=== PATIENT | female | born 1950 | race Caucasian/White ===

== ENCOUNTER → 2024-12-29 | Outpatient (CLI) | payer MEDICARE, OTHER, SELFPAY ==
--- OUTSIDE RECORDS SUMMARY | 2024-12-29 07:43 | XMS RPT_ITS | CCD ---
Author Organization [facility] Inform ion Partnership [facility] Care Team Providers Care Tire Fixer Name Role Phone Unavailable Unavailable Unavailable SCOTT CRAWFORD ALAN Unavailable Unavailable JOSEPHBALDEVE Unavailable Unavaila ble FADA SCOTT KATELYNN Unavailable Unavailable FADA SCOTT KATELYNN Unavailable Unavailable JOSEPHBALDEV VENKATA Unavailable Unavaila ble Unavailable Primary Care Provider Unavaillinda RAMIREZ, DR CHRISTIANO Emery Attending Unavaila ble ASHLEY, DR CHRISTIANO Emery Primary Care Unavaila ble ASHLEY, DR CHRISTIANO Emery Admitting Unavaila ble Pablo Gagnon Attending Unavailable Samson MCKEON, Pablo Attending Unavailable Inder Sosa MD Unavailable Unavailable PERRY LOPEZ Attending Unavailable KEYLA YOEL Bina Consulting Unavailable PALOMO RAMIREZ Admitting Unavailable PALOMO RAMIREZ Primary Care Unavailable PALOMO RAMIREZ Attending Unavailable PROVIDER, UNKNOWN Consulting Unavailable NORCH, YOEL K Primary Care Unavailable NORCH, YOEL K Attending Unavailable NORCH, YOEL K Admitting Unavailable NORCH, YOEL K Primary Care Unavailable NORCH, YOEL K Attending Unavailable NORCH, YOEL K Admitting Unavailable RENAY WAN MD Admitting Unavailable RENAY WAN MD Primary Care Unavailable RENAY WAN MD Attending Unavailable DR PALOMO RAMIREZ MD Attending Unavailable DR PALOMO RAMIREZ MD Primary Care Unavailable Allergies Allergy Classification Reported Allergen(s) Allergy Type Date of Onset Reaction(s) Facility (1 source) ALLERGIES NOT ON FILE; Translations: [ALLERGIES NOT ON FILE] Propensity to adverse reactions (disorder) [facility] Repository Medications Current Medications Medication Drug Class(es) Dates Sig (Normalized) Sig (Original) atorvastatin 20 mg oral tablet (1 source) HMG-CoA Reductase Inhibitor Start: 7 take 1 tablet by mouth once daily atorvastatin (LIPITOR) 20 MG tablet Take 20 mg by mouth daily. 09/27/2016 Active celecoxib 200 mg oral capsule (1 source) Nonsteroidal Anti-inflammatory Drug Start: 7 take 1 capsule by mouth twice daily celecoxib (CELEBREX) 200 MG capsule Take 200 mg by mouth 2 (two) times a day. 11/29/2016 Active clobetasol propionate 0.5 mg/ml topical cream (1 source) Corticosteroid Start: 7 clobetasol (TEMOVATE) 0.05 % cream Apply 0.05 application topically 2 (two) times a day as needed. 1 09/30/2016 Active cloNIDine hydrochloride 0.1 mg oral tablet (1 source) Central alpha-2 Adrenergic Agonist Start: 7 take 1 tablet by mouth once daily cloNIDine HCl (CATAPRES) 0.1 MG tablet Take 0.1 mg by mouth daily. 12/05/2016 Active dapagliflozin 10 mg oral tablet (1 source) Sodium-Glucose Cotransporter 2 Inhibitor Start: 7 take 1 tablet by mouth once daily FARXIGA 10 mg Tab Take 10 mg by mouth daily. 12/05/2016 Active dextroamphetamine sulfate 10 mg oral tablet (1 source) Central Nervous System Stimulant Start: 7 take 1 tablet by mouth three times daily dextroamphetamine (DEXTROSTAT) 10 MG tablet Take 10 mg by mouth 3 (three) times a day. 0 12/03/2016 Active FLUoxetine 10 mg oral capsule (1 source) Serotonin Reuptake Inhibitor Start: 7 take 1 capsule by mouth three times daily FLUoxetine (PROZAC) 10 MG capsule Take 10 mg by mouth 3 (three) times a day. 12/05/2016 Active gabapentin 300 mg oral capsule (1 source) Anti-epileptic Agent Start: 7 take 1 capsule by mouth three times daily gabapentin (NEURONTIN) 300 MG capsule Take 300 mg by mouth 3 (three) times a day. 10/20/2016 Active lisdexamfetamine dimesylate 70 mg oral capsule (1 source) Central Nervous System Stimulant Start: 7 take 1 capsule by mouth once daily VYVANSE 70 mg capsule Take 70 mg by mouth daily. 0 12/03/2016 Active metroNIDAZOLE 7.5 mg/ml topical cream (1 source) Nitroimidazole Antimicrobial Start: 7 metroNIDAZOLE (METROCREAM) 0.75 % cream Apply 0.75 application topically 2 (two) times a day as needed. 12 10/09/2016 Active montelukast 10 mg oral tablet (1 source) Leukotriene Receptor Antagonist Start: 7 take 1 tablet by mouth once daily montelukast (SINGULAIR) 10 mg tablet Take 10 mg by mouth daily. 11/01/2016 Active multivitamin (multivitamin) per tablet (1 source) take 1 tablet by mouth once daily multivitamin (multivitamin) per tablet Take 1 tablet by mouth daily. Active omeprazole 40 mg delayed release oral capsule (1 source) Proton Pump Inhibitor Start: 7 take 1 capsule by mouth once daily omeprazole (PRILOSEC) 40 MG capsule Take 40 mg by mouth daily. 10/20/2016 Active topiramate 100 mg oral tablet (1 source) Anti-epileptic Agent Start: 7 take 1 tablet by mouth once daily topiramate (TOPAMAX) 100 MG tablet Take 100 mg by mouth daily. 12/05/2016 Active traZODone hydrochloride 100 mg oral tablet (1 source) Serotonin Reuptake Inhibitor Start: 7 take 1 tablet by mouth twice daily as needed traZODone (DESYREL) 100 MG tablet Take 100 mg by mouth 2 (two) times a day as needed. 12/05/2016 Active VITAMIN D2 50,000 unit capsule (1 source) Start: 7 take 1 capsule by mouth once daily, then take 1 capsule by mouth VITAMIN D2 50,000 unit capsule Take 50,000 Units by mouth daily. 10/20/2016 Active Problems Active Problems Problem Classification Problem Date Documented Da te Episodic/Chronic Complication of device; implant or graft (12 sources) Other mechanical complication of other internal joint prosthesis, subsequent encounter; Translations: [Other mechanical complication of other internal orthopedic devices, implants and grafts, subsequent encounter] Episodic Diabetes mellitus with complications (2 sources) Type 2 diabetes mellitus with unspecified complications; Translations: [Type 2 diabetes mellitus with unspecified complications] Onset: 11-21-2024 Chronic Disorders of lipid metabolism (2 sources) Mixed hyperlipidemia; Translations: [Mixed hyperlipidemia] Onset: 11-21-2024 Chronic Essential hypertension (2 sources) Essential (primary) hypertension; Translations: [Essential (primary) hypertension] Onset: 11-21-2024 Chronic Osteoarthritis (9 sources) Primary osteoarthritis, right ankle and foot; Translations: [Primary osteoarthritis, unspecified shoulder] Onset: 01-11-2024 Chronic Other bone disease and musculoskeletal deformities (1 source) Other specified disorders of bone density and structure, other site; Translations: [Other specified disorders of bone density and structure, other site] Onset: 11-07-2024 Episodic Other connective tissue disease (2 sources) Presence of left artificial knee joint; Translations: [Presence of left artificial knee joint] Onset: 12-09-2016 Chronic Other connective tissue disease (6 sources) Presence of right artificial ankle joint Chronic Other injuries and conditions due to external causes (1 source) Unspecified injury of right foot, initial encounter; Translations: [Unspecified injury of right foot, initial encounter] Onset: 10-12-2022 Episodic Other screening for suspected conditions (not mental disorders or infectious disease) (2 sources) Encounter for screening for osteoporosis; Translations: [Encounter for screening for osteoporosis] Onset: 11-07-2024 Episodic Unclassified (1 source) Unknown / UNK(Unknown) Onset: 12-09-2016 Past or Other Problems Problem Classification Problem Date Documented Da te Episodic/Chronic Other connective tissue disease (1 source) Unspecified disorder of synovium and tendon, unspecified shoulder; Translations: [Unspecified disorder of synovium and tendon, unspecified shoulder] Onset: 01-11-2024 Episodic Unclassified (1 source) Follow-up Onset: 12-09-2016 Unclassified (1 source) YEARLY CHECK (chief complaint) right ankle pain (chief complaint) Onset: 02-09-2023 Results Test Name Value Interpretation Reference Range Facility .GFRon 11-22-2024 Estimated Glomerular Filtration Rate 86 ml/min/1.73sqm [facility] Comment on above: Result Comment: Stages of Chronic Kidney Disease (CKD) Stage Description eGFR(ml/min/1.73 sq.m.) CKD 1 Normal kidney function or >=90 normal kindney function with possible kidney damage (ex. Proteinuria) CKD 2 Kidney damage with mild loss 60-89 of kidney function CKD 3a Mild to moderate loss of kidney 45-59 function CKD 3b Moderate to severe loss of 30-44 of kindey function CKD 4 Severe loss of kidney function 15-29 CKD 5 Kidney failure <15 Note: (go live 2024) the eGFR calculation was updated to the 2020 CKD-EPI creatinine equation without a race factor to calculate the eGFR results. Performed By: #### A 1C, GFR, TSH, B12, HFP, VIDH, FERR, LIPID, HGMP, FE, IBC, BMP #### [place] [id number] A1Con 11-22-2024 Glucose [Mass/Vol] 108 mg/dL Normal [facility] Comment on above: Result Comment: Estimated Average Glucos e calculated by equation ((28.7xA1C)-46.7) Estimated average glucose (eAG) is a calculated value from Hemoglobin A1C and is outside sales representative insurance of the average blood glucose level in the last 2-3 month period. Normal range: less than 114 mg/dL Performed By: #### A 1C, GFR, TSH, B12, HFP, VIDH, FERR, LIPID, HGMP, FE, IBC, BMP #### [place] [address] HbA1c (Bld) [Mass fraction] 5.4 % Normal 4.0-6.0 [facility] Comment on above: Performed By: #### A1C, GFR, TSH, B12, H FP, VIDH, FERR, LIPID, HGMP, FE, IBC, BMP #### [place] [id number] B12on 11-22-2024 Vitamin B12 Lvl >2000 High 211-911 [facility] Comment on above: Performed By: #### A1C, GFR, TSH, B12, H FP, VIDH, FERR, LIPID, HGMP, FE, IBC, BMP #### [place] [id number] BMPon 11-22-2024 BUN/Creatinine Ratio 21.6 ratio Normal 10.0-22.0 [facility] Comment on above: Performed By: #### A1C, GFR, TSH, B12, H FP, VIDH, FERR, LIPID, HGMP, FE, IBC, BMP #### [address] [address] Calcium [Mass/Vol] 9.8 mg/dL Normal 8.7-10.4 [facility] Comment on above: Performed By: #### A1C, GFR, TSH, B12, H FP, VIDH, FERR, LIPID, HGMP, FE, IBC, BMP #### [address] [address] Chloride [Moles/Vol] 109 mmol/L Normal 98-110 [facility] Comment on above: Performed By: #### A1C, GFR, TSH, B12, H FP, VIDH, FERR, LIPID, HGMP, FE, IBC, BMP #### [address] [address] CO2 [Moles/Vol] 26 mmol/L Normal 22-32 [facility] Comment on above: Performed By: #### A1C, GFR, TSH, B12, H FP, VIDH, FERR, LIPID, HGMP, FE, IBC, BMP #### [place] [id number] Creatinine [Mass/Vol] 0.74 mg/dL Normal 0.50-1.20 [facility] Comment on above: Result Comment: Testing performed on [employer] analyzer using enzymatic creatinine methodology. Performed By: #### A 1C, GFR, TSH, B12, HFP, VIDH, FERR, LIPID, HGMP, FE, IBC, BMP #### [place] [id number] Electrolyte Balance 8.0 mEq/L Normal 4.0-15.0 [facility] Comment on above: Performed By: #### A1C, GFR, TSH, B12, H FP, VIDH, FERR, LIPID, HGMP, FE, IBC, BMP #### [place] [id number] Glucose [Mass/Vol] 67 mg/dL Low 82-115 [facility] Comment on above: Performed By: #### A1C, GFR, TSH, B12, H FP, VIDH, FERR, LIPID, HGMP, FE, IBC, BMP #### [address] [address] Potassium [Moles/Vol] 4.0 mmol/L Normal 3.5-5.0 [facility] Comment on above: Performed By: #### A1C, GFR, TSH, B12, H FP, VIDH, FERR, LIPID, HGMP, FE, IBC, BMP #### [address] [address] Sodium [Moles/Vol] 143 mmol/L Normal 136-145 [facility] Comment on above: Performed By: #### A1C, GFR, TSH, B12, H FP, VIDH, FERR, LIPID, HGMP, FE, IBC, BMP #### [address] [address] Urea nitrogen [Mass/Vol] 16.0 mg/dL Normal 8.0-22.0 [facility] Comment on above: Performed By: #### A1C, GFR, TSH, B12, H FP, VIDH, FERR, LIPID, HGMP, FE, IBC, BMP #### [place] [id number] FEon 11-22-2024 Iron [Mass/Vol] 65 ug/dL Normal 50-170 [facility] Comment on above: Performed By: #### A1C, GFR, TSH, B12, H FP, VIDH, FERR, LIPID, HGMP, FE, IBC, BMP #### [address] [address] Shauna 11-22-2024 Ferritin [Mass/Vol] 52.8 ng/mL Normal 8.0-252.0 [facility] Comment on above: Performed By: #### A1C, GFR, TSH, B12, H FP, VIDH, FERR, LIPID, HGMP, FE, IBC, BMP #### [address] [address] HFPon 11-22-2024 Bili Indirect Unable to Calculate Normal 0.1-10.0 [facility] Comment on above: Result Comment: Unable to calculate this test result accurately. Results used to calculate this test are outside the reportable range. Performed By: #### A 1C, GFR, TSH, B12, HFP, VIDH, FERR, LIPID, HGMP, FE, IBC, BMP #### [place] [id number] Albumin Level 4.2 G/dL Normal 3.2-4.8 [facility] Comment on above: Performed By: #### A1C, GFR, TSH, B12, H FP, VIDH, FERR, LIPID, HGMP, FE, IBC, BMP #### [address] [address] Albumin/Globuli n [Mass ratio] 1.4 {ratio} Normal 0.9-1.6 [facility] Comment on above: Performed By: #### A1C, GFR, TSH, B12, H FP, VIDH, FERR, LIPID, HGMP, FE, IBC, BMP #### [address] [address] ALP [Catalytic activity/Vol] 73 U/L Normal 38-126 [facility] Comment on above: Performed By: #### A1C, GFR, TSH, B12, H FP, VIDH, FERR, LIPID, HGMP, FE, IBC, BMP #### [address] [address] ALT [Catalytic activity/Vol] 25 U/L Normal 10-49 [facility] Comment on above: Performed By: #### A1C, GFR, TSH, B12, H FP, VIDH, FERR, LIPID, HGMP, FE, IBC, BMP #### [address] [address] AST [Catalytic activity/Vol] 20 U/L Normal 8-34 [facility] Comment on above: Performed By: #### A1C, GFR, TSH, B12, H FP, VIDH, FERR, LIPID, HGMP, FE, IBC, BMP #### [address] [address] Bili Direct <0.1 Normal 0.0-0.4 [facility] Comment on above: Result Comment: Use of this assay is not recommended for patients undergoing treatment with eltrombopag due to the potential for falsely elevated results. Performed By: #### A 1C, GFR, TSH, B12, HFP, VIDH, FERR, LIPID, HGMP, FE, IBC, BMP #### [place] [address] Bili Total 0.20 mg/dL Normal 0.20-1.20 [facility] Comment on above: Result Comment: Use of this assay is not recommended for patients undergoing treatment with eltrombopag due to the potential for falsely elevated results. Performed By: #### A 1C, GFR, TSH, B12, HFP, VIDH, FERR, LIPID, HGMP, FE, IBC, BMP #### [place] [address] Globulin 3.0 G/dL Normal 2.5-4.2 [facility] Comment on above: Performed By: #### A1C, GFR, TSH, B12, H FP, VIDH, FERR, LIPID, HGMP, FE, IBC, BMP #### [place] [address] Total Protein 7.2 G/dL Normal 5.7-8.2 [facility] Comment on above: Performed By: #### A1C, GFR, TSH, B12, H FP, VIDH, FERR, LIPID, HGMP, FE, IBC, BMP #### [place] [address] HGMPon 11-22-2024 Erythrocyte distribution width (RBC) [Ratio] 13.7 % Normal 11.5-15.5 [facility] Comment on above: Performed By: #### A1C, GFR, TSH, B12, H FP, VIDH, FERR, LIPID, HGMP, FE, IBC, BMP #### [place] [address] Hematocrit (Bld) [Volume fraction] 43.1 % Normal 34.0-46.0 [facility] Comment on above: Performed By: #### A1C, GFR, TSH, B12, H FP, VIDH, FERR, LIPID, HGMP, FE, IBC, BMP #### [place] [address] Hgb 14.5 G/dL Normal 12.0-16.0 [facility] Comment on above: Performed By: #### A1C, GFR, TSH, B12, H FP, VIDH, FERR, LIPID, HGMP, FE, IBC, BMP #### [address] [address] MCH (RBC) [Entitic mass] 32.7 pg Normal 27.0-33.0 [facility] Comment on above: Performed By: #### A1C, GFR, TSH, B12, H FP, VIDH, FERR, LIPID, HGMP, FE, IBC, BMP #### [address] [address] MCHC 33.7 G/dL Normal 32.0-36.0 [facility] Comment on above: Performed By: #### A1C, GFR, TSH, B12, H FP, VIDH, FERR, LIPID, HGMP, FE, IBC, BMP #### [place] [id number] MCV (RBC) [Entitic vol] 96.9 fL Normal 80.0-99.0 [facility] Comment on above: Performed By: #### A1C, GFR, TSH, B12, H FP, VIDH, FERR, LIPID, HGMP, FE, IBC, BMP #### [place] [id number] Platelet 246 10 3/mcL Normal 150-450 [facility] Comment on above: Performed By: #### A1C, GFR, TSH, B12, H FP, VIDH, FERR, LIPID, HGMP, FE, IBC, BMP #### [place] [id number] Platelet mean volume (Bld) [Entitic vol] 8.7 fL Normal 6.6-10.5 [facility] Comment on above: Performed By: #### A1C, GFR, TSH, B12, H FP, VIDH, FERR, LIPID, HGMP, FE, IBC, BMP #### [place] [id number] RBC 4.45 10 6/mcL Normal 4.10-5.30 [facility] Comment on above: Performed By: #### A1C, GFR, TSH, B12, H FP, VIDH, FERR, LIPID, HGMP, FE, IBC, BMP #### [address] [address] WBC 6.8 10 3/mcL Normal 4.5-10.8 [facility] Comment on above: Performed By: #### A1C, GFR, TSH, B12, H FP, VIDH, FERR, LIPID, HGMP, FE, IBC, BMP #### [address] [address] IBCon 11-22-2024 TIBC 286 mcg/dL Normal 250-500 [facility] Comment on above: Performed By: #### A1C, GFR, TSH, B12, H FP, VIDH, FERR, LIPID, HGMP, FE, IBC, BMP #### [address] [address] LIPIDon 11-22-2024 Cholesterol [Mass/Vol] 162 mg/dL Normal 50-199 [facility] Comment on above: Result Comment: Cholesterol Reference In terval: Less than 200 Desirable 200-239 Borderline high risk 240 and above High risk Performed By: #### A 1C, GFR, TSH, B12, HFP, VIDH, FERR, LIPID, HGMP, FE, IBC, BMP #### [address] [address] Cholesterol in HDL [Mass/Vol] 72 mg/dL High 40-59 [facility] Comment on above: Performed By: #### A1C, GFR, TSH, B12, H FP, VIDH, FERR, LIPID, HGMP, FE, IBC, BMP #### [address] [address] Cholesterol in LDL [Mass/Vol] 65 mg/dL Normal 0-129 [facility] Comment on above: Performed By: #### A1C, GFR, TSH, B12, H FP, VIDH, FERR, LIPID, HGMP, FE, IBC, BMP #### [address] [address] Triglyceride [Mass/Vol] 126 mg/dL Normal 3-149 [facility] Comment on above: Performed By: #### A1C, GFR, TSH, B12, H FP, VIDH, FERR, LIPID, HGMP, FE, IBC, BMP #### [facility] [address] [place] [address] TSHon 11-22-2024 TSH 1.498 mIU/mL Normal 0.550-4.78 0 [facility] Comment on above: Performed By: #### A1C, GFR, TSH, B12, H FP, VIDH, FERR, LIPID, HGMP, FE, IBC, BMP #### [facility] [address] [place] [address] VIDHon 11-22-2024 Vit. D 25-Hydroxy 75.6 ng/mL Normal [facility] Comment on above: Result Comment: Interpretive Values Base d on Total 25(OH)D: Severe Deficiency <20 ng/mL Mild to Moderate Deficiency 20-30 ng/mL Optimum Levels 30-100 ng/mL Toxicity Possible >100 ng/mL Performed By: #### A 1C, GFR, TSH, B12, HFP, VIDH, FERR, LIPID, HGMP, FE, IBC, BMP #### [address] [address] BONE DENSITY STUDYon 025 Bone density scan [place] [address] Patient: MELVIN HAYDEN Phone#: : [phone] Age: 74 Gender: F Pt. Type: Out Account: [id number] Location: [facility] Ordering: PALOMO RAMIREZ Exam Date: 11/07/2024/13:17 Family Phys: Charge Code: 814854 Physician: [place] Order #: [id number] Dose#: PROCEDURE: BONE DENSITY STUDY TECHNIQUE: Lumbar vertebral and proximal femoral dual-energy X-ray absorptiometry (DXA) was performed on a central [email or web address] device. COMPARISON: [facility], BONE DENSITY STUDY, 02/02/2023, 12:05. SPINE ANALYSIS RESULTS: Average lumbar bone mineral density (BMD) (g/cm2): 1.405 Lumbar T-score (standard deviation relative to young adult mean BMD): 1.9 Lumbar Z-score (standard deviation relative to age matched control group): 3.3 Change since prior spine examination: Increased bone density. Bone mineral density has increased 8.4% since 02/02/2023. SPINE CLASSIFICATION: Normal (T-score > -1.0). HIP ANALYSIS RESULTS: Left femoral bone mineral density (BMD) (g/cm2): 0.917 Right femoral bone mineral density (BMD) (g/cm2): 0.916 Femur T-score (standard deviation relative to young adult mean BMD): -0.7 Femur Z-score (standard deviation relative to age matched control group): 0.6 Change since prior hip examination: Increased bone density . Bone mineral density has increased 2.0% since 02/02/2023. HIP CLASSIFICATION (World Health Organization): Normal (T-score > -1.0). Note: The 2007 International Society for Clinical Densitometry (ISCD) Official Positions state that osteoporosis in vamsi-menopausal and post-menopausal women and in men age 50 and older may be diagnosed if the T-score of the lumbar spine, total hip, or femoral neck is -2.5 or less. Hip BMD is reported from the femoral neck or total proximal femur whichever is lowest. In pre-menopausal women and in men younger than age 50, T-scores may be used but Z-scores are preferred. In this patient group, a Z-score of -2.0 or lower is defined as below the expected range for age. FRAX is a computer-based algorithm which uses easily obtained clinical risk factors combined with femoral neck BMD or T-score to estimate an individual 10-year fracture probability. FRAX with BMD predicts fracture risk better than clinical risk factors or BMD alone. It is not appropriate to use FRAX to monitor treatment response. Continued Report - Page 2 of 2 Patient: MELVIN HAYDEN Phone#: : [phone] Age: 74 Gender: F Pt. Type: Out Account: [id number] Location: 052 Ordering: PALOMO CANNONL Exam Date: 11/07/2024/13:17 Family Phys: Charge Code: [id number] Physician: [place] Order #: [id number] Dose#: ADDITIONAL FINDINGS: FRAX: 10 year probability of fracture Major osteoporotic fracture: 14.8% Hip fracture: 1.9% Dictated by: Siobhan Hernandez MD on 11/07/2024 at 15:53 Approved by: Siobhan Hernandez MD on 11/07/2024 at 16:01 Normal [facility] CMP with eGFRon 07-31-2024 AGE 74 years Normal [facility] Comment on above: Performed By: #### [id number] #### [facility],[address] [place] [address] Albumin [Mass/Vol] 3.4 g/dL Normal 3.4 - 5.0 [facility] Comment on above: Performed By: #### [id number] #### [facility],[address] [place] [address] Albumin/Globuli n [Mass ratio] 1.0 {ratio} Normal 0.9 - 1.6 [facility] Comment on above: Performed By: #### [id number] #### [facility],[address] [place] [address] ALK PHOS 63 U/L Normal 46 - 116 [facility] Comment on above: Performed By: #### [id number] #### [facility],[address] [place] [address] ALT [Catalytic activity/Vol] 21 U/L Normal 16 - 63 [facility] Comment on above: Performed By: #### [id number] #### [facility],[address] [place] [address] Anion gap [Moles/Vol] 12 mmol/L Normal 10 - 20 [facility] Comment on above: Performed By: #### [id number] #### [facility],[address] [place] [address] AST [Catalytic activity/Vol] 18 U/L Normal 13 - 39 [facility] Comment on above: Performed By: #### [id number] #### [facility],[address] [place] [address] B/C RATIO 21 ratio Normal 0 - 30 [facility] Comment on above: Performed By: #### [id number] #### [facility],[address] [place] [address] Bilirubin [Mass/Vol] 0.4 mg/dL Normal 0.2 - 1.0 [facility] Comment on above: Performed By: #### [id number] #### [facility],[address] [place] [address] Calcium [Mass/Vol] 8.8 mg/dL Normal 8.5 - 10.1 [facility] Comment on above: Performed By: #### [id number] #### [facility],[address] [place] [address] Chloride [Moles/Vol] 113 mmol/L High 98 - 107 [facility] Comment on above: Performed By: #### [id number] #### [facility],[address] [place] [address] CMP with eGFR Normal [facility] Comment on above: Result Comment: COMPREHENSIVE METABOLIC PANEL Performed By: #### [id number] #### [facility],[address] [place] [address] CO2 [Moles/Vol] 24.7 mmol/L Normal 21.0 - 32.0 [facility] [facility] Comment on above: Performed By: #### [id number] #### [facility],[address] [place] [address] 53488 Creatinine [Mass/Vol] 0.75 mg/dL Normal 0.55 - 1.02 [facility] Comment on above: Performed By: #### [id number] #### [facility],[address] [place] [address] 36646 GFR/1.73 sq M.predicted among non-blacks MDRD (S/P/Bld) [Vol rate/Area] mL/min/{1.73_m2} Normal 60 - 999 [facility] Comment on above: Performed By: #### [id number] #### [facility],[address] [place] [address] 78999 Result Comment: ACCO RDING TO THE NATIONAL KIDNEY DISEASE EDUCATION PROGRAM(NKDE), A NORMAL eGFR IS A VALUE GREATER THAN OR EQUAL TO 60 ML/MIN/1.73 SQ METERS. CHRONIC KIDNEY DISEASE: <60mL/MIN/1.73 SQ METERS KIDNEY FAILURE: <15mL/MIN/1.73 SQ METERS THIS TEST SHOULD ONLY BE USED FOR PATIENTS 18 YEARS OF AGE AND OLDER. Globulin (S) [Mass/Vol] 3.3 g/dL Normal 1.5 - 3.8 [facility] Comment on above: Performed By: #### [id number] #### [facility],[address] [place] [address] 89170 Glucose [Mass/Vol] 93 mg/dL Normal 74 - 106 [facility] Comment on above: Performed By: #### [id number] #### [facility],[address] [place] [address] 06526 Potassium [Moles/Vol] 4.0 mmol/L Normal 3.5 - 5.1 [facility] Comment on above: Performed By: #### [id number] #### [facility],[address] [place] [address] 84389 Protein [Mass/Vol] 6.7 g/dL Normal 6.4 - 8.2 [facility] Comment on above: Performed By: #### [id number] #### [facility],[address] [place] [address] 76019 Sodium [Moles/Vol] 146 mmol/L High 136 - 145 [facility] Comment on above: Performed By: #### [id number] #### [facility],[address] [place] [address] 34839 Urea nitrogen [Mass/Vol] 16 mg/dL Normal 7 - 18 [facility] Comment on above: Performed By: #### [id number] #### [facility],[address] [place] [address] 72734 HEMOGLOBIN A1C (POM)on 07-31 Glucose [Mass/Vol] 108.3 mg/dL High 0.0 - 0.0 [facility] Comment on above: Result Comment: BLDoHEMOGLOBIN A1C REFER ENCE RANGESBLDo Suggested Diagnosis HbA1c(%) HbA1C (mmol/mol Diabetic >/=6.5 >/=48 Prediabetes 5.7 - 6.4 39 - 47 Normal <5.7 <39 Performed By: #### [id number] #### [facility],[address] [place] [address] 63054 HbA1c (Bld) [Mass fraction] 5.4 % Normal 0.0 - 6.5 [facility] Comment on above: Performed By: #### [id number] #### [facility],[address] [place] [address] 85653 LIPID PROFILEon 07-31-2024 Cholesterol [Mass/Vol] 155 mg/dL Normal 0 - 240 [facility] Comment on above: Performed By: #### [id number] #### [facility],[address] [place] [address] 47911 Cholesterol in HDL [Mass/Vol] 74 mg/dL High 40 - 60 [facility] Comment on above: Performed By: #### [id number] #### [facility],[address] [place] [address] 06592 Cholesterol in LDL [Mass/Vol] 69 mg/dL Normal 0 - 129 [facility] Comment on above: Performed By: #### [id number] #### [facility],[address] [place] [address] 23181 Cholesterol.tot al/Cholesterol in HDL [Mass ratio] 2.1 {ratio} Normal 0.0 - 5.0 [facility] Comment on above: Performed By: #### [id number] #### [facility],[address] [place] [address] 86237 Lipid 1996 panel Normal [facility] Comment on above: Result Comment: LIPID PROFILE Performed By: #### 2 [id number] #### [facility],[address] [place] [address] 27478 Triglyceride [Mass/Vol] 59 mg/dL Normal 0 - 150 [facility] Comment on above: Performed By: #### [id number] #### [facility],[address] [place] [address] 89482 CMP with eGFRon 01-04-2024 AGE 73 years Normal [facility] Comment on above: Performed By: #### [id number] #### [facility],[address] [place] [address] 09595 Albumin [Mass/Vol] 3.6 g/dL Normal 3.4 - 5.0 [facility] Comment on above: Performed By: #### [id number] #### [facility],[address] [place] [address] 62139 Albumin/Globuli n [Mass ratio] 1.0 {ratio} Normal 0.9 - 1.6 [facility] Comment on above: Performed By: #### [id number] #### [facility],[address] [place] [address] 23823 ALK PHOS 73 U/L Normal 46 - 116 [facility] Comment on above: Performed By: #### [id number] #### [facility],[address] [place] [address] 39798 ALT [Catalytic activity/Vol] 26 U/L Normal 16 - 63 [facility] Comment on above: Performed By: #### [id number] #### [facility],[address] [place] [address] 26645 Anion gap [Moles/Vol] 12 mmol/L Normal 10 - 20 [facility] Comment on above: Performed By: #### [id number] #### [facility],[address] [place] [address] 86117 AST [Catalytic activity/Vol] 21 U/L Normal 13 - 39 [facility] Comment on above: Performed By: #### [id number] #### [facility],[address] [place] [address] 93688 B/C RATIO 22 ratio Normal 0 - 30 [facility] Comment on above: Performed By: #### [id number] #### [facility],[address] [place] [address] 49082 Bilirubin [Mass/Vol] 0.3 mg/dL Normal 0.2 - 1.0 [facility] Comment on above: Performed By: #### [id number] #### [facility],[address] [place] [address] 42477 Calcium [Mass/Vol] 9.1 mg/dL Normal 8.5 - 10.1 [facility] Comment on above: Performed By: #### [id number] #### [facility],[address] [place] [address] 54737 Chloride [Moles/Vol] 107 mmol/L Normal 98 - 107 [facility] Comment on above: Performed By: #### [id number] #### [facility],[address] [place] [address] 86294 CMP with eGFR Normal [facility] Comment on above: Result Comment: COMPREHENSIVE METABOLIC PANEL Performed By: #### 2 [id number] #### [facility],[address] [place] [address] 78774 CO2 [Moles/Vol] 27.2 mmol/L Normal 21.0 - 32.0 [facility] Comment on above: Performed By: #### [id number] #### [facility],[address] [place] [address] 50500 Creatinine [Mass/Vol] 0.85 mg/dL Normal 0.55 - 1.02 [facility] Comment on above: Performed By: #### [id number] #### [facility],[address] [place] [address] 15034 GFR/1.73 sq M.predicted among non-blacks MDRD (S/P/Bld) [Vol rate/Area] mL/min/{1.73_m2} Normal 60 - 999 [facility] Comment on above: Performed By: #### [id number] #### [facility],[address] [place] [address] 57510 Result Comment: ACCO RDING TO THE NATIONAL KIDNEY DISEASE EDUCATION PROGRAM(NKDE), A NORMAL eGFR IS A VALUE GREATER THAN OR EQUAL TO 60 ML/MIN/1.73 SQ METERS. CHRONIC KIDNEY DISEASE: <60mL/MIN/1.73 SQ METERS KIDNEY FAILURE: <15mL/MIN/1.73 SQ METERS THIS TEST SHOULD ONLY BE USED FOR PATIENTS 18 YEARS OF AGE AND OLDER. Globulin (S) [Mass/Vol] 3.7 g/dL Normal 1.5 - 3.8 [facility] Comment on above: Performed By: #### [id number] #### [address] [address] Glucose [Mass/Vol] 107 mg/dL High 74 - 106 [facility] Comment on above: Performed By: #### [id number] #### [address] [address] Potassium [Moles/Vol] 4.4 mmol/L Normal 3.5 - 5.1 [facility] Comment on above: Performed By: #### [id number] #### [address] [address] Protein [Mass/Vol] 7.3 g/dL Normal 6.4 - 8.2 [facility] Comment on above: Performed By: #### [id number] #### [address] [address] Sodium [Moles/Vol] 142 mmol/L Normal 136 - 145 [facility] Comment on above: Performed By: #### [id number] #### [address] [address] Urea nitrogen [Mass/Vol] 19 mg/dL High 7 - 18 [facility] Comment on above: Performed By: #### [id number] #### [address] [address] HEMOGLOBIN A1C (POM)on 01-03 Glucose [Mass/Vol] 114.0 mg/dL High 0.0 - 0.0 [facility] Comment on above: Result Comment: BLDoHEMOGLOBIN A1C REFER ENCE RANGESBLDo Suggested Diagnosis HbA1c(%) HbA1C (mmol/mol Diabetic >/=6.5 >/=48 Prediabetes 5.7 - 6.4 39 - 47 Normal <5.7 <39 Performed By: #### 2 [id number] #### [facility],[address] [place] [address] HbA1c (Bld) [Mass fraction] 5.6 % Normal 0.0 - 6.5 [facility] Comment on above: Performed By: #### [id number] #### [facility],[address] [place] [address] LIPID PROFILEon 01-04-2024 Cholesterol [Mass/Vol] 195 mg/dL Normal 0 - 240 [facility] Comment on above: Performed By: #### [id number] #### [facility],[address] [place], [place] [address] Cholesterol in HDL [Mass/Vol] 71 mg/dL High 40 - 60 [facility] Comment on above: Performed By: #### [id number] #### [facility],[address] [place], [place] [address] Cholesterol in LDL [Mass/Vol] 106 mg/dL Normal 0 - 129 [facility] Comment on above: Performed By: #### [id number] #### [facility],[address] [place] [address] 80714 Cholesterol.tot al/Cholesterol in HDL [Mass ratio] 2.7 {ratio} Normal 0.0 - 5.0 [facility] Comment on above: Performed By: #### [id number] #### [facility],[address] [place] [address] 13347 Lipid 1996 panel Normal [facility] Comment on above: Result Comment: LIPID PROFILE Performed By: #### 2 [id number] #### [facility],[address] [place], [place] [address] Triglyceride [Mass/Vol] 91 mg/dL Normal 0 - 150 [facility] Comment on above: Performed By: #### [id number] #### [facility],[address] [place] [address] 24139 URINE MICROALBUMIN W/CREATIN INE, RANDOMon 01-04-2024 CREATININE UR 119.37 mg/dl Normal [facility] Comment on above: Performed By: #### [id number] #### [facility],[address] [place], [place] [address] MICROALBUMIN UR 1.0 mg/dL Normal 0.1 - 11.[address] [facility] Comment on above: Performed By: #### [id number] #### [facility],[address] [place] [address] 76397 UACR 8 mg/g Normal [facility] Comment on above: Performed By: #### [id number] #### [facility],[address] [place] [address] 58573 Toe(s) Min 2 Viewson 023 Toe(s) Min 2 Views [facility] [address] [place] [address] Toe(s) Min 2 Views MR#: [id number] Acct: [id number] Name: MELVIN HAYDEN Rep #: [id number] : 1950 F 72 From: Ramon Galarza PCP: Status: REG AMB Study: Toe(s) Min 2 Views Date of Exam: 10/12/22 Exam# [id number] Ordering Dr: Pablo Davies STUDY: X-RAY RIGHT FOOT, FIRST TOE REASON FOR EXAM: Female, 72 years old. right great toe axial loading injury TECHNIQUE: 2 view(s) of the toe were obtained. COMPARISON: None. ____ FINDINGS: Normal visualized metatarsus. Normal metatarsophalangeal (M.T.P) joint. Normal interphalangeal joints. Cortical defect distal phalanx. Soft tissue swelling. ____ RAD/Toe(s) Min 2 Views IMPRESSION: Fracture distal phalanx Electronically Signed: Ramon Jeffrey MD at 16:31 EDT Reading Location ID and State: [address] [place] [address] , Service support , CC: MIKE Davies Teacher Counselor: Signed Normal [facility] Urgent Care Visit Reporton 0 10-12-2022 Urgent Care Visit Report [facility] [address] [place] [address] [address] [place] [address] OFFICE VISIT Date of Service: 10/12/22 MR#: [id number] Acct: [id number] Name: JACKELYNMLEVIN Bina Rep #: [id number] : 1950 Provider: MIKE Davies Age/Sex: 72/F Location: [facility] Status: Signed Intake Vital Signs 10/12/22 15:34 Height 1.57 m Weight: 76.204 kg BMI 30.7 BP 118/78 Blood Pressure Location Rt brachial Position Sitting Respiration 17 Pulse 86 Pulse Source Monitor Temp 98.1 F Temp Source Temporal Intake Visit Reasons: RT BIG TOE INJURY Chief Complaint: Right big toe injury/pain Spud Driller Required: No Accompanied by: Self Is patient in pain?: Yes Pain scale (1-10): 8 Allergies No Known Allergies Allergy (Unverified 10/12/22 15:13) Medications ascorbic acid (vitamin C) 500 mg tablet 500 mg PO DAILY 10/12/22 [History Confirmed 10/12/22] atorvastatin 80 mg tablet tablet PO 10/12/22 [History Confirmed 10/12/22] calcium carbonate 600 mg calcium (1,500 mg) tablet (Calcium) 600 mg PO DAILY 10/12/22 [History Confirmed 10/12/22] canagliflozin 300 mg tablet (Invokana) tablet PO 10/12/22 [History Confirmed 10/12/22] celecoxib 200 mg capsule ea PO 10/12/22 [History Confirmed 10/12/22] ergocalciferol (vitamin D2) 1,250 mcg (50,000 unit) capsule ea PO 10/12/22 [History Confirmed 10/12/22] glucosamine-chondroitin 250 mg-200 mg tablet (Osteo Bi-Flex) 2 tab PO DAILY 10/12/22 [History Confirmed 10/12/22] omega 0-fzc-pst-fish oil 60 mg-90 mg-500 mg capsule (Fish Oil) 1 cap PO DAILY 10/12/22 [History Confirmed 10/12/22] omeprazole 40 mg capsule,delayed release ea PO 10/12/22 [History Confirmed 10/12/22] PFSH Medical History (Updated 10/12/22 @ 15:37 by Dari Whiting) Calcaneal fracture Collar bone fracture Surgical History (Updated 10/12/22 @ 15:12 by Dari Whiting) 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 [facility] initially injured her toe about 14 days ago. The patient was at a dog park and attempted to kick a ball. She missed and stubbed her toe on something she is not sure what. She had pain and swelling of the toe. It was improving gradually on its own until 4 days ago. She dropped a shovel on the same toe. She was wearing socks and shoes at the time. Since then it has been much more painful and swollen. Weight bearing and driving increases the pain. No numbness or tingling. ROM is intact. 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 She is worried the toe is broken. ROS Const Constitutional: No chills, fatigue or fever(s) Musc Musculoskeletal: No joint pain, deformity, joint swelling, limited range of motion, numbness or tingling Skin Skin: Positive for redness; No lesions or wounds Neuro Neurology: No numbness or tingling Endo Endocrine: No fatigue Exam Const General: cooperative, healthy appearing, comfortable, no acute distress, well developed and well groomed Nutritional Appearance: overweight Orientation: alert and awake [facility] Head: normocephalic and atraumatic Musc Other: right great toe - generalized erythema. mild generalized swelling. no wounds. ROM and strength normal. sensation intact. tender to palp all over. Coding Level of Care Code Off vis,new,level 3 Diagnoses Injury of right great toe S99.921A Assessment and Plan Assessment and Plan (1) Injury of right great toe: Status: Acute Plan: Initial injury axial loading about 2 weeks ago then worsened when she dropped a shovel on the same toe 4 days ago. Now it is swollen and painful. No wound - occurred with socks and shoes on. Xray obtained today - interpreted by radiology - distal phalynx fracture. Chris taped and placed in surgical shoe. Pt will need to be evaluated by podiatry for further care - she has seen podiatry in [place] in the past for several operation - this is who she will need to follow up with. Recommend tylenol, gentle icing no >10 mins at a time. elevation. pt already on celecoxib so no additional nsaids. Hx multiple foot surgeries. Follow up with leather colorer for any further needs. Orders: Orders Toe(s) Min 2 Views Today S99.921A - Unspecified injury of right foot, initial encounter 10/12/22 1643 Date (more content not included)... Normal [facility] MSCon 10-01-2021 [facility] REPORT Normal [facility] DATE OF SERVICE: HISTORY OF PRESENT ILLNESS: Patient is a 71-year-old female presenting to [facility] today for cough, headache, mild shortness of breath worse with exertion. She states that her symptoms have been going on for 2 weeks. She has not had any improvement. Has been coughing up a lot of sputum. She denies a high fever. No difficulty breathing. VITAL SIGNS: 124/60, pulse is 57, respiratory rate 18, temperature 98.7, pulse oximetry is 98%. PAST MEDICAL HISTORY: ADHD, arthritis, prediabetic, neurologic disease, depression. SOCIAL HISTORY: Nonsmoker. Occasional alcohol use. CURRENT MEDICATIONS: 1. Vyvanse. 2. Gabapentin. 3. Trazodone. 4. Omeprazole. 5. Atorvastatin. 6. Invokana. 7. Celebrex. 8. Topamax. [facility] PATIENT NAME: MELVIN HAYDEN [address] [facility] [address] [facility] [address] Elliott MEDICAL REC #: [id number] [place] [address] [facility] REPORT [facility] PHYSICIAN 9. Vitamin D. 10. Cyclobenzaprine. 11. Clonidine. 12. Vitamins. PHYSICAL EXAMINATION: Patient is awake and alert, in no acute distress. No dyspnea noted. HEENT: Within normal limits. Neck is supple. Chest is symmetrical with equal breath sounds. Lungs: Expiratory wheezes noted throughout. Coarse breath sounds. She does have mild tenderness on palpation of the chest. Denies chest pain. Heart: Regular rate and rhythm. Skin is warm and dry and intact. DIAGNOSES: 1. Bronchitis. 2. Upper respiratory infection. PLAN: Patient treated with amoxicillin for 10 days, Medrol Dosepak, and albuterol inhaler. She was educated about how to use these medications. Increase oral hydration, rest, finish these medications as prescribed. Tylenol as needed. She needs to follow up with her primary care physician in about 7 to 10 days. Discussed in detail signs and symptoms that she should seek emergency care for. Patient agreeable with the plan and understood. [facility] PATIENT NAME: MELVIN HAYDEN Odilia Elliott MEDICAL REC #: [id number] [place] [address] [facility] REPORT [facility] PHYSICIAN CORNELIA Taylor/[id number] SSI File#: [id number] END OF DOCUMENT / CHANGE LOG FOLLOWS Last Edited By Patti. Signed By Hoa Aggarwal CNP #Hoa Kebede CNP #TAVIA on 10/21/2021 10:17 ET on 10/21/2021 10:17 ET Revision Number - 2 Verified/Reviewed by 10/21/21 1018 TAVIA [facility] PATIENT NAME: MELVIN HAYDEN [address] Elliott MEDICAL REC #: [id number] [place] [address] [facility] REPORT [facility] PHYSICIAN Normal [facility] .Auto Diffon 03-07-2021 Basophil, Absolute 0.00 10 3/mcL Normal 0.00-0.27 [facility] ([place]) Comment on above: Performed By: #### CBC, ADIFF, ANEU, CRP , ESR #### [facility] [address] [place], [place] [address] Basophils/100 WBC (Bld) 0.6 % Normal 0.0-2.5 [facility] ([place]) Comment on above: Performed By: #### CBC, ADIFF, ANEU, CRP , ESR #### [address] [address] Eosinophil, Absolute 0.10 10 3/mcL Normal 0.00-0.65 [facility] ([place]) Comment on above: Performed By: #### CBC, ADIFF, ANEU, CRP , ESR #### [address] [address] Eosinophils/100 WBC (Bld) 2.2 % Normal 0.0-6.0 [facility] ([place]) Comment on above: Performed By: #### CBC, ADIFF, ANEU, CRP , ESR #### [address] [address] Lymphocyte, Absolute 2.90 10 3/mcL Normal 0.90-4.32 [facility] ([place]) Comment on above: Performed By: #### CBC, ADIFF, ANEU, CRP , ESR #### [address] [address] Lymphocytes/100 WBC (Bld) 44.3 % High 20.0-40.0 [facility] ([place]) Comment on above: Performed By: #### CBC, ADIFF, ANEU, CRP , ESR #### [address] [address] Monocyte, Absolute 0.40 10 3/mcL Normal 0.09-1.40 [facility] ([place]) Comment on above: Performed By: #### CBC, ADIFF, ANEU, CRP , ESR #### [address] [address] Monocytes/100 WBC (Bld) 6.5 % Normal 2.0-13.0 [facility] ([place] Comment on above: Performed By: #### CBC, ADIFF, ANEU, CRP , ESR #### [address] [address] Neutrophils/100 WBC (Bld) 46.4 % Low 50.0-75.0 [facility] ([place]) Comment on above: Performed By: #### CBC, ADIFF, ANEU, CRP , ESR #### [address] [address] .NEUABSon 03-07-2021 Neutrophil, Absolute 3.10 10 3/mcL Normal 2.25-8.10 [facility] ([place]) Comment on above: Performed By: #### CBC, ADIFF, ANEU, CRP , ESR #### [place] [id number] CBCon 03-07-2021 Erythrocyte distribution width (RBC) [Ratio] 14.7 % Normal 11.5-15.5 [facility] ([place] Comment on above: Performed By: #### CBC, ADIFF, ANEU, CRP , ESR #### [place] [address] Hematocrit (Bld) [Volume fraction] 42.6 % Normal 34.0-46.0 [facility] ([place] Comment on above: Performed By: #### CBC, ADIFF, ANEU, CRP , ESR #### [place] [address] Hgb 13.9 G/dL Normal 12.0-16.0 [facility] ([place] Comment on above: Performed By: #### CBC, ADIFF, ANEU, CRP , ESR #### [place] [address] MCH (RBC) [Entitic mass] 31.3 pg Normal 27.0-33.0 [facility] ([place]) Comment on above: Performed By: #### CBC, ADIFF, ANEU, CRP , ESR #### [place] [address] MCHC 32.7 G/dL Normal 32.0-36.0 [facility] ([place] Comment on above: Performed By: #### CBC, ADIFF, ANEU, CRP , ESR #### [place] [address] MCV (RBC) [Entitic vol] 95.8 fL Normal 80.0-99.0 [facility] ([place]) Comment on above: Performed By: #### CBC, ADIFF, ANEU, CRP , ESR #### [place] [address] Platelet 278 10 3/mcL Normal 150-450 [facility] ([place]) Comment on above: Performed By: #### CBC, ADIFF, ANEU, CRP , ESR #### [address] [address] Platelet mean volume (Bld) [Entitic vol] 8.6 fL Normal 6.6-10.5 [facility] ([place]) Comment on above: Performed By: #### CBC, ADIFF, ANEU, CRP , ESR #### [place] [address] RBC 4.45 10 6/mcL Normal 4.10-5.30 [facility] ([place]) Comment on above: Performed By: #### CBC, ADIFF, ANEU, CRP , ESR #### [place] [address] WBC 6.70 10 3/mcL Normal 4.50-10.80 [facility] ([place]) Comment on above: Performed By: #### CBC, ADIFF, ANEU, CRP , ESR #### [place] [address] CRPon 03-07-2021 CRP [Mass/Vol] mg/L Normal 0.0-1.0 [facility] ([place]) Comment on above: Result Comment: Note - New Reference R milagro in effect 11/07/19 Performed By: #### C BC, ADIFF, ANEU, CRP, ESR #### [place] [address] ESRon 03-07-2021 Erythrocyte Sed Rate 9 mm/hr Normal 0-30 [facility] ([place]) Comment on above: Performed By: #### CBC, ADIFF, ANEU, CRP , ESR #### [place] [address] Occult Blood, Automated (Med icare Screening)on 12-09-2020 Occult Blood, Automated Negative Normal Negative [facility] Comment on above: Order Comment: Items in this order inclu de: Direct LDL , Triglyceride Testing Performed By: [facility] 73 [place] [address] Agustin Meneses, Clinic Administrator Performed By: #### C 141, C119 #### [facility] [address] [place] [address] [place] [address] B12/Folateon 12-05-2020 Cobalamin (Vitamin B12) [Mass/Vol] 514 pg/mL Normal 239-931 [facility] Comment on above: Order Comment: Items in this order inclu de: CBC with differential, HgbA1C, , , Comprehensive Metabolic Panel, Lipid Panel, TSH, B12/Folate, Vit D 25 [place] (Total), , , Testing Performed By: [facility] [address] [place] [address]. [place] [id number] Dr. Jaime Musa, Clinic Administrator Result Comment: Plea se note: Over the counter high dose supplements of Biotin that are 20 to 300 times greater than the adequate daily intake of 30 mcg/day for adults may cause a bias of 10% or more to be observed in the measured Vitamin B-12 concentrations. Performed By: #### C 400, C47, C8, C406, C3763, C1573, C215 #### [facility] [address] [place] [address] [place] [address] Folate >20.00 Normal 2.80-20.00 [facility] Comment on above: Order Comment: Items in this order inclu de: CBC with differential, HgbA1C, , , Comprehensive Metabolic Panel, Lipid Panel, TSH, B12/Folate, Vit D 25 [place] (Total), , , Testing Performed By: [facility] [address] [place] [address]. [place] [address] Dr. Jaime Musa, Clinic Administrator Result Comment: Plea se note: Over the counter high dose supplements of Biotin that are 20 to 300 times greater than the adequate daily intake of 30 mcg/day for adults may cause a bias of 10% or more to be observed in the measured Folate concentrations. Performed By: #### C 400, C47, C8, C406, C3763, C1573, C215 #### [facility] [facility] [place] [address] CBC with differentialon 11-17 BASO # 0.1 K CUMM Normal 0.0-0.2 [facility] Comment on above: Order Comment: Items in this order inclu de: CBC with differential, HgbA1C, , , Comprehensive Metabolic Panel, Lipid Panel, TSH, B12/Folate, Vit D 25 [place] (Total), , , Testing Performed By: [facility] [address] [place] [address]. [place] [address] Dr. Jaime Musa, Clinic Administrator Performed By: #### C 400, C47, C8, C406, C3763, C1573, C215 #### [facility] [address] [place] [address] Basophils/100 WBC (Bld) 0.7 % Normal 0.0-3.0 [facility] Comment on above: Order Comment: Items in this order inclu de: CBC with differential, HgbA1C, , , Comprehensive Metabolic Panel, Lipid Panel, TSH, B12/Folate, Vit D 25 [place] (Total), , , Testing Performed By: [facility] [address] [place] [address] Jaime Musa, Clinic Administrator Performed By: #### C 400, C47, C8, C406, C3763, C1573, C215 #### [facility] [address] [place] [address] [address] [place] [address] EOS # 0.2 K CUMM Normal 0.0-0.4 [facility] Comment on above: Order Comment: Items in this order inclu de: CBC with differential, HgbA1C, , , Comprehensive Metabolic Panel, Lipid Panel, TSH, B12/Folate, Vit D 25 [place] (Total), , , Testing Performed By: [facility] [address] [place] [address]. [place] [address] Dr. Jaime Musa, Clinic Administrator Performed By: #### C 400, C47, C8, C406, C3763, C1573, C215 #### [facility] [address] [place] [address] Eosinophils/100 WBC (Bld) 2.0 % Normal 0.0-7.0 [facility] Comment on above: Order Comment: Items in this order inclu de: CBC with differential, HgbA1C, , , Comprehensive Metabolic Panel, Lipid Panel, TSH, B12/Folate, Vit D 25 [place] (Total), , , Testing Performed By: [facility] [address] [place] [address] Dr. Jaime Musa, Clinic Administrator Performed By: #### C 400, C47, C8, C406, C3763, C1573, C215 #### [facility] [address] [place] [address] [address] [place] [address] Erythrocyte distribution width (RBC) [Ratio] 13.7 % Normal 11.5-15.5 [facility] Comment on above: Order Comment: Items in this order inclu de: CBC with differential, HgbA1C, , , Comprehensive Metabolic Panel, Lipid Panel, TSH, B12/Folate, Vit D 25 [place] (Total), , , Testing Performed By: [facility] [address] [place] [address] Dr. Jaime Musa, Clinic Administrator Performed By: #### C 400, C47, C8, C406, C3763, C1573, C215 #### [facility] [address] [place] [address] [place] [address] Hematocrit (Bld) [Volume fraction] 48.1 % High 37.0-47.0 [facility] Comment on above: Order Comment: Items in this order inclu de: CBC with differential, HgbA1C, , , Comprehensive Metabolic Panel, Lipid Panel, TSH, B12/Folate, Vit D 25 [place] (Total), , , Testing Performed By: [facility] [address] [place] [address] Jaime Musa, Clinic Administrator Performed By: #### C 400, C47, C8, C406, C3763, C1573, C215 #### [facility] [address] [place] [address] [address] [place] [address] Hemoglobin (Bld) [Mass/Vol] 15.0 g/dL Normal 11.5-15.5 [facility] Comment on above: Order Comment: Items in this order inclu de: CBC with differential, HgbA1C, , , Comprehensive Metabolic Panel, Lipid Panel, TSH, B12/Folate, Vit D 25 [place] (Total), , , Testing Performed By: [facility] [address] [place] [address] Jaime Musa, Clinic Administrator Performed By: #### C 400, C47, C8, C406, C3763, C1573, C215 #### [facility] [address] [facility] [address] [place] [address] ImmGrn # 0.0 K CUMM Normal 0.0-0.3 [facility] Comment on above: Order Comment: Items in this order inclu de: CBC with differential, HgbA1C, , , Comprehensive Metabolic Panel, Lipid Panel, TSH, B12/Folate, Vit D 25 [place] (Total), , , Testing Performed By: [facility] [address] [place] [address] Dr. Jaime Musa, Clinic Administrator Performed By: #### C 400, C47, C8, C406, C3763, C1573, C215 #### [facility] [address] [place] [address] [address] [place] [address] ImmGrn % 0.1 % Normal 0.0-3.0 [facility] Comment on above: Order Comment: Items in this order inclu de: CBC with differential, HgbA1C, , , Comprehensive Metabolic Panel, Lipid Panel, TSH, B12/Folate, Vit D 25 [place] (Total), , , Testing Performed By: [facility] [address] [place] [address] Jaime Musa, Clinic Administrator Performed By: #### C 400, C47, C8, C406, C3763, C1573, C215 #### [facility] [address] [place] [address] [address] [place] [address] LYMPH # 2.8 K CUMM Normal 0.7-4.5 [facility] Comment on above: Order Comment: Items in this order inclu de: CBC with differential, HgbA1C, , , Comprehensive Metabolic Panel, Lipid Panel, TSH, B12/Folate, Vit D 25 [place] (Total), , , Testing Performed By: [facility] [address] [place] [address] Dr. Jaime Musa, Clinic Administrator Performed By: #### C 400, C47, C8, C406, C3763, C1573, C215 #### [facility] [address] [place] [address] [address] [place] [address] Lymphocytes/100 WBC (Bld) 37.9 % Normal 14.0-46.0 [facility] Comment on above: Order Comment: Items in this order inclu de: CBC with differential, HgbA1C, , , Comprehensive Metabolic Panel, Lipid Panel, TSH, B12/Folate, Vit D 25 [place] (Total), , , Testing Performed By: [facility] [address] [place] [address] Dr. Jaime Musa, Clinic Administrator Performed By: #### C 400, C47, C8, C406, C3763, C1573, C215 #### [facility] [address] [place] [address] [address] [place] [address] MCH (RBC) [Entitic mass] 30.9 pg Normal 27.0-31.0 [facility] Comment on above: Order Comment: Items in this order inclu de: CBC with differential, HgbA1C, , , Comprehensive Metabolic Panel, Lipid Panel, TSH, B12/Folate, Vit D 25 [place] (Total), , , Testing Performed By: [facility] [address] [place] [address] Jaime Musa, Clinic Administrator Performed By: #### C 400, C47, C8, C406, C3763, C1573, C215 #### [facility], [facility]. [address] [place] [address] [address] [place] [address] MCHC (RBC) [Mass/Vol] 31.2 g/dL Low 32.0-36.0 [facility] Comment on above: Order Comment: Items in this order inclu de: CBC with differential, HgbA1C, , , Comprehensive Metabolic Panel, Lipid Panel, TSH, B12/Folate, Vit D 25 [place] (Total), , , Testing Performed By: [facility] [address] [place] [address] Dr. Jaime Musa, Clinic Administrator Performed By: #### C 400, C47, C8, C406, C3763, C1573, C215 #### [facility] [address] [place] [address] [address] [place] [address] MCV (RBC) [Entitic vol] 99.2 fL Normal 78.0-100.0 [facility] Comment on above: Order Comment: Items in this order inclu de: CBC with differential, HgbA1C, , , Comprehensive Metabolic Panel, Lipid Panel, TSH, B12/Folate, Vit D 25 [place] (Total), , , Testing Performed By: [facility] [address] [place] [address] Dr. Jaime Musa, Clinic Administrator Performed By: #### C 400, C47, C8, C406, C3763, C1573, C215 #### [facility] [address] [place] [address] [place] [address] MONO # 0.4 K CUMM Normal 0.1-1.0 [facility] Comment on above: Order Comment: Items in this order inclu de: CBC with differential, HgbA1C, , , Comprehensive Metabolic Panel, Lipid Panel, TSH, B12/Folate, Vit D 25 [place] (Total), , , Testing Performed By: [facility] [address] [place] [address] Dr. Jaime Musa, Clinic Administrator Performed By: #### C 400, C47, C8, C406, C3763, C1573, C215 #### [facility], [facility]. [address] [place] [address] [place] [address] Monocytes/100 WBC (Bld) 5.5 % Normal 4.0-13.0 [facility] Comment on above: Order Comment: Items in this order inclu de: CBC with differential, HgbA1C, , , Comprehensive Metabolic Panel, Lipid Panel, TSH, B12/Folate, Vit D 25 [place] (Total), , , Testing Performed By: [facility] [address] [place] [address] Dr. Jaime Musa, Clinic Administrator Performed By: #### C 400, C47, C8, C406, C3763, C1573, C215 #### [facility] [address] [place] [address] [address] [place] [address] FRANK # 4.0 K CUMM Normal 1.8-7.8 [facility] Comment on above: Order Comment: Items in this order inclu de: CBC with differential, HgbA1C, , , Comprehensive Metabolic Panel, Lipid Panel, TSH, B12/Folate, Vit D 25 [place] (Total), , , Testing Performed By: [facility] [address] [place] [address] Dr. Jaime Musa, Clinic Administrator Performed By: #### C 400, C47, C8, C406, C3763, C1573, C215 #### [facility] [address] [place] [address] [address] [place] [address] Neutrophils/100 WBC (Bld) 53.8 % Normal 40.0-74.0 [facility] Comment on above: Order Comment: Items in this order inclu de: CBC with differential, HgbA1C, , , Comprehensive Metabolic Panel, Lipid Panel, TSH, B12/Folate, Vit D 25 [place] (Total), , , Testing Performed By: [facility] [address] [place] [address] Dr. Jaime Musa, Clinic Administrator Performed By: #### C 400, C47, C8, C406, C3763, C1573, C215 #### [facility], [facility]. [address] [place] [address] [address] [place] [address] Platelet mean volume (Bld) [Entitic vol] 10.3 fL Normal 8.9-12.6 [facility] Comment on above: Order Comment: Items in this order inclu de: CBC with differential, HgbA1C, , , Comprehensive Metabolic Panel, Lipid Panel, TSH, B12/Folate, Vit D 25 [place] (Total), , , Testing Performed By: [facility] [address] [place] [address] Dr. Jaime Musa, Clinic Administrator Performed By: #### C 400, C47, C8, C406, C3763, C1573, C215 #### [facility] [facility] [address] [place] [address] PLT 253 K CUMM Normal 130-400 [facility] Comment on above: Order Comment: Items in this order inclu de: CBC with differential, HgbA1C, , , Comprehensive Metabolic Panel, Lipid Panel, TSH, B12/Folate, Vit D 25 [place] (Total), , , Testing Performed By: [facility] [address] [place] [address] Dr. Jaime Musa, Clinic Administrator Performed By: #### C 400, C47, C8, C406, C3763, C1573, C215 #### [facility] [address] [place] [address] [address] [place] [address] RBC 4.85 M CUMM Normal 3.80-5.10 [facility] Comment on above: Order Comment: Items in this order inclu de: CBC with differential, HgbA1C, , , Comprehensive Metabolic Panel, Lipid Panel, TSH, B12/Folate, Vit D 25 [place] (Total), , , Testing Performed By: [facility] [address] [place] [address] Dr. Jaime Musa, Clinic Administrator Performed By: #### C 400, C47, C8, C406, C3763, C1573, C215 #### [facility] [address] [place] [address] [address] [place] [address] WBC 7.4 K CUMM Normal 3.8-10.6 [facility] Comment on above: Order Comment: Items in this order inclu de: CBC with differential, HgbA1C, , , Comprehensive Metabolic Panel, Lipid Panel, TSH, B12/Folate, Vit D 25 [place] (Total), , , Testing Performed By: [facility] [address] [place] [address]. [place] [address] Dr. Jaime Musa, Clinic Administrator Performed By: #### C 400, C47, C8, C406, C3763, C1573, C215 #### [facility] [address] [place] [address] [address] [place] [address] Comprehensive Metabolic Pane venus 12-05-2020 Albumin [Mass/Vol] 4.4 g/dL Normal 3.5-5.0 [facility] Comment on above: Order Comment: Items in this order inclu de: CBC with differential, HgbA1C, , , Comprehensive Metabolic Panel, Lipid Panel, TSH, B12/Folate, Vit D 25 [place] (Total), , , Testing Performed By: [facility] [address] [place] [address] Dr. Jaime Musa, Clinic Administrator Performed By: #### C 400, C47, C8, C406, C3763, C1573, C215 #### [facility] [address] [place] [address] [address] [place] [address] Alk Phos 86 U/L Normal 23-159 [facility] Comment on above: Order Comment: Items in this order inclu de: CBC with differential, HgbA1C, , , Comprehensive Metabolic Panel, Lipid Panel, TSH, B12/Folate, Vit D 25 [place] (Total), , , Testing Performed By: [facility] [address] [place] [address] Dr. Jaime Musa, Clinic Administrator Performed By: #### C 400, C47, C8, C406, C3763, C1573, C215 #### [facility] [address] [place] [address] [address] [place] [address] ALT [Catalytic activity/Vol] 30 U/L Normal 0-38 [facility] Comment on above: Order Comment: Items in this order inclu de: CBC with differential, HgbA1C, , , Comprehensive Metabolic Panel, Lipid Panel, TSH, B12/Folate, Vit D 25 [place] (Total), , , Testing Performed By: [facility] [address] [place], [place] [id number] Dr. Jaime Musa, Clinic Administrator Performed By: #### C 400, C47, C8, C406, C3763, C1573, C215 #### [facility], [facility]. [address] [place] [address] [address] [place] [address] AST [Catalytic activity/Vol] 31 U/L Normal 11-43 [facility] Comment on above: Order Comment: Items in this order inclu de: CBC with differential, HgbA1C, , , Comprehensive Metabolic Panel, Lipid Panel, TSH, B12/Folate, Vit D 25 [place] (Total), , , Testing Performed By: [facility] [address] [place] [address] Dr. Jaime Musa, Clinic Administrator Performed By: #### C 400, C47, C8, C406, C3763, C1573, C215 #### [facility], [facility]. [address] [place] [address] [address] [place] [address] Bilirubin [Mass/Vol] 0.3 mg/dL Normal 0.2-1.3 [facility] Comment on above: Order Comment: Items in this order inclu de: CBC with differential, HgbA1C, , , Comprehensive Metabolic Panel, Lipid Panel, TSH, B12/Folate, Vit D 25 [place] (Total), , , Testing Performed By: [facility] [address] [place] [address] Dr. Jaime Musa, Clinic Administrator Performed By: #### C 400, C47, C8, C406, C3763, C1573, C215 #### [facility], [facility]. [address] [place] [address] [address] [place] [address] Calcium [Mass/Vol] 9.0 mg/dL Normal 8.5-10.5 [facility] Comment on above: Order Comment: Items in this order inclu de: CBC with differential, HgbA1C, , , Comprehensive Metabolic Panel, Lipid Panel, TSH, B12/Folate, Vit D 25 [place] (Total), , , Testing Performed By: [facility] [address] [place] [address] Dr. Jaime Musa, Clinic Administrator Performed By: #### C 400, C47, C8, C406, C3763, C1573, C215 #### [facility] [address] [place] [address] [address] [place] [address] Chloride [Moles/Vol] 109 mmol/L High 98-107 [facility] Comment on above: Order Comment: Items in this order inclu de: CBC with differential, HgbA1C, , , Comprehensive Metabolic Panel, Lipid Panel, TSH, B12/Folate, Vit D 25 [place] (Total), , , Testing Performed By: [facility] [address] [place] [address] Dr. Jaime Musa, Clinic Administrator Performed By: #### C 400, C47, C8, C406, C3763, C1573, C215 #### [facility] [address] [place] [address] [address] [place] [address] CO2 [Moles/Vol] 22.0 mmol/L Normal 21.0-32.0 [facility] Comment on above: Order Comment: Items in this order inclu de: CBC with differential, HgbA1C, , , Comprehensive Metabolic Panel, Lipid Panel, TSH, B12/Folate, Vit D 25 [place] (Total), , , Testing Performed By: [facility] [address] [place] [address] Dr. Jaime Musa, Clinic Administrator Performed By: #### C 400, C47, C8, C406, C3763, C1573, C215 #### [facility] [address] [place] [address] [address] [place] [address] Creatinine [Mass/Vol] 0.9 mg/dL Normal 0.1-1.2 [facility] Comment on above: Order Comment: Items in this order inclu de: CBC with differential, HgbA1C, , , Comprehensive Metabolic Panel, Lipid Panel, TSH, B12/Folate, Vit D 25 [place] (Total), , , Testing Performed By: [facility] [address] [place] [address] Jaime Musa, Clinic Administrator Performed By: #### C 400, C47, C8, C406, C3763, C1573, C215 #### [facility] [address] [facility] [address] [place] [address] GFR 62 mL/min per 1.73 Normal >60 [facility] Comment on above: Order Comment: Items in this order inclu de: CBC with differential, HgbA1C, , , Comprehensive Metabolic Panel, Lipid Panel, TSH, B12/Folate, Vit D 25 [place] (Total), , , Testing Performed By: [facility] [address] [place] [address] Dr. Jaime Musa, Clinic Administrator Result Comment: The GFR estimate is not adjusted for race. If the patient's race is -Croat[place], the GFR estimate must be multiplied by a factor of 1.21. Performed By: #### C 400, C47, C8, C406, C3763, C1573, C215 #### [facility] [address] [place] [address] [address] [place] [address] Glucose [Mass/Vol] 90 mg/dL Normal 74-100 [facility] Comment on above: Order Comment: Items in this order inclu de: CBC with differential, HgbA1C, , , Comprehensive Metabolic Panel, Lipid Panel, TSH, B12/Folate, Vit D 25 [place] (Total), , , Testing Performed By: [facility] [address] [place] [address] Dr. Jaime Musa, Clinic Administrator Performed By: #### C 400, C47, C8, C406, C3763, C1573, C215 #### [facility] [address] [place] [address] [address] [place] [address] Potassium [Moles/Vol] 4.5 mmol/L Normal 3.5-5.3 [facility] Comment on above: Order Comment: Items in this order inclu de: CBC with differential, HgbA1C, , , Comprehensive Metabolic Panel, Lipid Panel, TSH, B12/Folate, Vit D 25 [place] (Total), , , Testing Performed By: [facility] [address] [place] [address] Jaime Musa, Clinic Administrator Performed By: #### C 400, C47, C8, C406, C3763, C1573, C215 #### [facility], [facility]. [address] [place] [address] [address] [place] [address] Protein [Mass/Vol] 7.2 g/dL Normal 6.3-8.4 [facility] Comment on above: Order Comment: Items in this order inclu de: CBC with differential, HgbA1C, , , Comprehensive Metabolic Panel, Lipid Panel, TSH, B12/Folate, Vit D 25 [place] (Total), , , Testing Performed By: [facility] [address] [place] [address] Dr. Jaime Musa, Clinic Administrator Performed By: #### C 400, C47, C8, C406, C3763, C1573, C215 #### [facility]. [address] [place] [address] [address] [place] [address] Sodium [Moles/Vol] 142 mmol/L Normal 135-145 [facility] Comment on above: Order Comment: Items in this order inclu de: CBC with differential, HgbA1C, , , Comprehensive Metabolic Panel, Lipid Panel, TSH, B12/Folate, Vit D 25 [place] (Total), , , Testing Performed By: [facility] [address] [place] [address] Jaime Musa, Clinic Administrator Performed By: #### C 400, C47, C8, C406, C3763, C1573, C215 #### [facility], [facility]. [address] [place] [address] [address] [place] [address] Urea nitrogen [Mass/Vol] 21 mg/dL Normal 6-22 [facility] Comment on above: Order Comment: Items in this order inclu de: CBC with differential, HgbA1C, , , Comprehensive Metabolic Panel, Lipid Panel, TSH, B12/Folate, Vit D 25 [place] (Total), , , Testing Performed By: [facility] [address] [place] [address] Jaime Musa, Clinic Administrator Performed By: #### C 400, C47, C8, C406, C3763, C1573, C215 #### [facility] [address] [facility] [address] [place] [address] [id number] 12-05-2020 HbA1c (Bld) [Mass fraction] 5.8 % High <5.7 [facility] Comment on above: Order Comment: Items in this order inclu de: CBC with differential, HgbA1C, , , Comprehensive Metabolic Panel, Lipid Panel, TSH, B12/Folate, Vit D 25 [place] (Total), , , Testing Performed By: [facility] [address] [facility] [place] [address] Dr. Jaime Musa, Clinic Administrator Result Comment: Refe rence Interval: Normal: below 5.7%. Prediabetes: 5.7% to 6.4%. Diabetes: 6.5% or above. Performed By: #### C 400, C47, C8, C406, C3763, C1573, C215 #### [facility] [address] [facility] [address] [place] [address] Lipid Panelon 12-05-2020 Cholesterol [Mass/Vol] 179 mg/dL Normal <200 [facility] Comment on above: Performed By: #### C400, C47, C8, C406, C3763, C1573, C215 #### [facility] [address] [facility] [place] [address] Cholesterol in HDL [Mass/Vol] 60 mg/dL Normal >50 [facility] Comment on above: Performed By: #### C400, C47, C8, C406, C3763, C1573, C215 #### [facility] [address] [place] [address] Cholesterol in LDL [Mass/Vol] 77 mg/dL Normal <130 [facility] Comment on above: Performed By: #### C400, C47, C8, C406, C3763, C1573, C215 #### [facility] [address] [place] [address] Cholesterol.tot al/Cholesterol in HDL [Mass ratio] 3.0 {ratio} Normal <4.0 [facility] Comment on above: Performed By: #### C400, C47, C8, C406, C3763, C1573, C215 #### [facility] [address] [place] [address] Non-HDL Chol 119 Normal LDL Goal + 30 [facility] Comment on above: Result Comment: LDL and Non-HDL goal dep endent upon individual risk Performed By: #### C 400, C47, C8, C406, C3763, C1573, C215 #### [facility] [address] [place] [address] Triglyceride [Mass/Vol] 212 mg/dL High <150 [facility] Comment on above: Performed By: #### C400, C47, C8, C406, C3763, C1573, C215 #### [facility] [address] [place] [address] [address] [place] [address] VLDL-Calc 42 mg/dl High <30 [facility] Comment on above: Performed By: #### C400, C47, C8, C406, C3763, C1573, C215 #### [facility] [address] [place] [address] [address] [place] [address] TSHon 12-05-2020 TSH 1.05 MIU/mL Normal 0.50-6.00 [facility] Comment on above: Order Comment: Items in this order inclu de: CBC with differential, HgbA1C, , , Comprehensive Metabolic Panel, Lipid Panel, TSH, B12/Folate, Vit D 25 [place] (Total), , , Testing Performed By: [facility] [address] [place] [address]. [place] [address] Dr. Jaime Musa, Clinic Administrator Performed By: #### C 400, C47, C8, C406, C3763, C1573, C215 #### [facility] [address] [place] [address] [address] [place] [id number] Vit D 25 [place] (Total)on 2020 Vit D 25 [place] (Total) 65.8 ng/ml Normal 31.0-100.0 [facility] Comment on above: Order Comment: Items in this order inclu de: CBC with differential, HgbA1C, , , Comprehensive Metabolic Panel, Lipid Panel, TSH, B12/Folate, Vit D 25 [place] (Total), , , Testing Performed By: [facility] [address] [place] [address]. [place] [address] Dr. Jaime Musa, Clinic Administrator Result Comment: Defi ciency <10 ng/ml Insufficiency 10-30 ng/ml Sufficiency 31-100 ng/ml Toxicity >100 ng/ml Performed By: #### C 400, C47, C8, C406, C3763, C1573, C215 #### [facility] [address] [place] [address] Culture, Urineon 09-17-2020 RPT Microbiology results Abnormal [facility] Comment on above: Order Comment: Items in this order inclu de: Culture, Urine Testing Performed By: [facility] [address] [place] [address]. [place] [address] Dr. Jaime Musa, Clinic Administrator Result Comment: [place] Count: 50,000-75,000 CFU/ML Final Result: Escherichia coli (Isolate 1) Sensitivity Analysis Isolate 1 Amoxicillin/Clavulanic Aci 4 S Ampicillin >=32 R Ampicillin/Sulbactam >=32 R Cefazolin <=4 S Cefepime <=1 S Ceftazidime <=1 S Ceftriaxone <=1 S Ciprofloxacin <=0.25 S Ertapenem <=0.5 S ESBL Neg - Gentamicin <=1 S Imipenem <=0.25 S Levofloxacin <=0.12 S Nitrofurantoin <=16 S Piperacillin/Tazobactam <=4 S Tobramycin <=1 S Trimethoprim/Sulfamethoxaz <=20 S Performed By: #### C 734 #### [facility] 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 [facility] Comment on above: Result Comment: Negative for This test was developed and its performance characteristics determined by [facility] [place]. This test has been authorized by FDA under an Emergency Use Authorization (EUA). This test has been validated in accordance with the FDA's Guidance Document Policy for Diagnostics Testing in Laboratories Certified to Perform High Complexity Testing under CLIA prior to Emergency use Authorization for Coronavirus Disease 2019 during the Public Health Emergency issued on June 17, 2019. COVID19 (SARS This test was developed and its performance characteristics determined by [facility]'s [facility] [place]. This test has been authorized by FDA under an Emergency Use Authorization (EUA). This test has been validated in accordance with the FDA's Guidance Document Policy for Diagnostics Testing in Laboratories Certified to Perform High Complexity Testing under CLIA prior to Emergency use Authorization for Coronavirus Disease 2019 during the Public Health Emergency issued on June 17, 2019. CoV2) by PCR. This test was developed and its performance characteristics determined by [facility] Pathology and Laboratory [facility] [place]. This test has been authorized by FDA under an Emergency Use Authorization (EUA). This test has been validated in accordance with the FDA's Guidance Document Policy for Diagnostics Testing in Laboratories Certified to Perform High Complexity Testing under CLIA prior to Emergency use Authorization for Coronavirus Disease 2019 during the Public Health Emergency issued on June 17, 2019. 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 [address] Dr. Agustin Meneses, Clinic Administrator Result Comment: LDL goal dependent upon individual risk Performed By: #### C 141, C119 #### [facility] [address] [place] [address] Triglycerideon 01-25-2020 Triglyceride [Mass/Vol] 135 mg/dL Normal <150 [facility] Comment on above: Order Comment: Items in this order inclu de: Direct LDL , Triglyceride Testing Performed By: [facility] [address] [place] [address] Dr. Agustin Meneses, Clinic Administrator Performed By: #### C 141, C119 #### [facility] [address] [place] [address] [place] Mammo Digital Screen bila t w stephen(NB)on 12-27-2019 [place] Mammo Digital Screen bilat w stephen(NB) EXAMINATION TYPE: [place] Mammo Digital Screen bilat w stephen(NB) DATE OF EXAM : 12/27/2019 2:53 PM Digital Breast Tomosynthesis Screening Mammogram with Computer Aided Detection PATIENT HISTORY: Menarche at age 10. First Full-Term at age 26. Postmenopausal. Estrogen for 6 months. PRIOR STUDIES: 10/02/2014, 10/30/2015, 11/03/2016, 11/24/2017, 12/02/2018 REASON FOR STUDY: Breast Screening. TECHNIQUE: Multiple low dose images were obtained in each projection. These low-dose images were reconstructed into 1 mm thick slices and reviewed on the soft copy workstation along with additional reconstructed standard digital bilateral mammogram images. Computer-aided detection utilizing FanBridgeCAD reader has been performed. BREAST COMPOSITION: There are scattered areas of fibroglandular density FINDINGS: There are no suspicious abnormalities. There has been no significant interval change. IMPRESSION: No mammographic evidence for malignancy. BI-RADS Code: 2-Benign RECOMMENDATION: 1. Screening Mammogram in 1 year COMMENTS: No additional comments As per federal SA guidelines, a result letter will be mailed to the patient. [place] thanks you for the opportunity to care for your patient. Workstation ID: [id number] FINAL REPORT Dictated By: Karen Story MD 12/27/2019 16:01 Assigned Physician: Karen Story MD Reviewed and Electronically Signed By: Karen Story MD 12/27/2019 16:05 Transcribed by: BENITA 12/27/2019 16:01 Technologist: [facility] XR KNEE LEFT 2 VIEWS ([address] RD)on 12-09-2016 XR KNEE LEFT 2 VIEWS (STANDARD) Multiple radiographic views were obtained and reviewed of the Left knee. These show the presence of posterior stabilized total knee arthroplasty. There are no obvious signs of fracture, significant polyethylene wear, radiolucent lines about the prosthesis, failure, or other obvious abnormality.Dictated by: SCOTT CRAWFORD on WedDec 09, 2016 12:51:06 PM EDTTranscribed by: SCOTT CRAWFORD on WedDec 09, 2016 12:51:06 PM EDTFinalized by: SCOTT CRAWFORD on WedDec 09, 2016 12:51:06 PM EDT [facility] Comment on above: Order Comment: Reason for exam?:Injury/T rauma or Illness?:Illness/OtherHow long have you had these symptoms (acute/chronic)?:AcuteHistory of cancer?:Surgeries, chemotherapy, or radiation?:Type of Exam?:Subsequent/Follow-upAdditional signs and symptoms?: Vital Signs Date Time Vital Sign Value Performing Clinician Javieri robert 12-09-2016 09:22-0400 BMI (Body Mass Index) 33.29 kg/m2 Scott Crawford [facility] Work Phone: 12-09-2016 09:22-0400 BP Diastolic 73 mm[Hg] Scott Crawford [facility] Work Phone: 12-09-2016 09:22-0400 BP Systolic 153 mm[Hg] Scott Crawford [facility] Work Phone: 12-09-2016 09:22-0400 Height 157.5 cm Scott Crawford [facility] Work Phone: 12-09-2016 09:22-0400 Pulse (Heart Rate) 82 /min Scott Crawford [facility] Work Phone: 12-09-2016 09:22-0400 Weight 82.56 kg Scott Crawford [facility] Work Phone: Encounters Encounter Date Encounter Type Care Provider Facility Start: 11-21-2024 End: 11-25-[address] PALOMO RAMIREZ MD Facility:A Start: 11-07-2024 End: 11-07-2024 ambulatory [facility] Start: 07-31-2024 End: 07-31-2024 ambulatory [facility] Start: 01-11-2024 End: 03-13-2024 ambulatory RENAY GARDNER [facility] Start: 01-04-2024 End: 01-04-2024 ambulatory [facility] Start: 10-05-2023 ambulatory PERRY [facility] Start: 08-17-2023 End: 08-17-2023 Office outpatient visit 15 minutes Inder Sosa Work Phone: [facility] Start: 07-14-2023 ambulatory PERRY [facility] Start: 02-16-2023 End: 02-16-2023 Office outpatient visit 40 minutes Tres Chambers Work Phone: [facility] Start: 02-09-2023 End: 02-09-2023 Encounter identifier Julian Pavon Work Phone: [facility] Start: 02-09-2023 End: 02-09-2023 Office outpatient visit 25 minutes Tres Chambers Work Phone: [facility] Start: 10-12-2022 End: 10-12-2022 ambulatory Pablo MCKEON Facility:[facility] Start: 01-17-2022 Emergency department patient visit DR CHRISTIANO RAMIREZ [facility] Start: 10-01-2021 Patient encounter procedure Hoa Aggarwal APRN.SURVEY DATA TECHNICIAN Work Phone: [facility] Start: 10-01-2021 Progress Note Hoa Aggarwal APRN.SURVEY DATA TECHNICIAN Work Phone: [facility] Start: 10-01-2021 End: 10-01-2021 Subsequent hospital visit by physician Fer Lanier APRN.SURVEY DATA TECHNICIAN Work Phone: [facility] Comment on above: PAINFUL CHEST COUGH, SHORT OF BREATH,LOOSE STOOLS, Start: 12-09-2016 End: 12-13-[address] [facility] Start: 12-09-2016 Office/outpatient visit, est, level 3 Scott Crawford Work Phone: [facility] Procedures Date Procedure Procedure Detail Performing Clinician Start: 08-17-2023 Follow-up visit FOLLOW UP (chi ef complaint) Inder Sosa Work Phone: Start: 08-17-2023 End: 08-17-2023 Radex ankle complete minimum 3 views Inder Sosa MD Start: 02-09-2023 End: 02-09-2023 Ct lower extremity w/o contrast material Inder Sosa MD Start: 02-09-2023 End: 02-09-2023 Radex ankle complete minimum 3 views Inder Sosa MD Plan of Treatment Date Care Activity Detail Author Start: 02-09-2023 Patient referral CAT scan of leg RT ankle [facility] Start: 12-18-2016 SEQUENTIAL INFLUENZA VACCINE (#1) SEQUENTIAL INFLUENZA VACCINE (#1) [facility] Work Phone: Start: 2012 Zoster vacc, sc ZOSTER VACCINE [facility] Work Phone: Start: 1950 Colonoscopy COLONOSCOPY [facility] Work Phone: Start: 1950 Cytopathology procedure, preparation of smear, genital source PAP SMEAR [facility] Work Phone: Start: 1950 HEPATITIS C SCREENING HEPATITIS C SCREENING [facility] Work Phone: Start: 1950 TETANUS EVERY 10 YR TETANUS EVERY 10 YR [facility] Work Phone: Payers Date Payer Category Payer Medicare [id number] 2022 Medicare [id number] 2022 Self-pay 2022 Unknown [id number] 2016 Unknown [id number] 2. [id number] 1952 Unknown [id number] 2.16.8 [id number] 1952 Unknown [id number] 2.16.8 [id number] 1952 Unknown [id number] 2.16.8 [id number] 1952 Unknown [id number] 2.16.8 [id number] 1952 Unknown [id number] 2.16. [id number] Unknown [id number] 2.16.8 [id number] Unknown [id number] 2.16.8 [id number] Social History Date Type Detail Facility Start: 12-09-2016 Tobacco smoking status NHIS Never smoker [facility] Work Phone: Start: 1950 Sex Assigned At Not on file [facility] Work Phone: Start: 08-17-2023 Tobacco smoking status NHIS Tobacco smoking consumption unknown [facility] Start: 08-17-2023 Alcohol intake Alcohol Use Details [facility] Sex Assigned At Female [facility] Start: 03-15-2023 Sexual Orientation Choose not to disclose [facility] Evaluation note 08-17-2023 Note Date & Type Note Facility 08-17-2023 Evaluation note Type assessment Primary osteoarthritis, right an kle and foot assessment Presence of right artificial ank le joint assessment [facility] compl of other internal joint prosthesis, subs encntr assessment [facility] 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 [facility] Work Phone: History of Present illness Narrative 10-01-2021 Hoa Aggarwal APRN.CNP - 10/01/2021 1:26 PM EDT Note Date & Type Note Facility 10-01-2021 History of Present illness Narrative DATE OF SERVICE: 10/01/2021 HISTORY OF PRESENT ILLNESS: Patient is a 71-year-old female presenting to [facility] today for cough, headache, mild shortness of breath worse with exertion. She states that her symptoms have been going on for 2 weeks. She has not had any improvement. Has been coughing up a lot of sputum. She denies a high fever. No difficulty breathing. VITAL SIGNS: 124/60, pulse is 57, respiratory rate 18, temperature 98.7, pulse oximetry is 98%. PAST MEDICAL HISTORY: ADHD, arthritis, prediabetic, neurologic disease, depression. SOCIAL HISTORY: Nonsmoker. Occasional alcohol use. CURRENT MEDICATIONS: 1. Vyvanse. 2. Gabapentin. 3. Trazodone. 4. Omeprazole. 5. Atorvastatin. 6. Invokana. 7. Celebrex. 8. Topamax. [facility] PATIENT NAME: [facility] MEDICAL REC #: [id number] [place] [address] [facility] REPORT [facility]IC[facility] 9. Vitamin D. 10. Cyclobenzaprine. 11. Clonidine. 12. Vitamins. PHYSICAL EXAMINATION: Patient is awake and alert, in no acute distress. No dyspnea noted. HEENT: Within normal limits. Neck is supple. Chest is symmetrical with equal breath sounds. Lungs: Expiratory wheezes noted throughout. Coarse breath sounds. She does have mild tenderness on palpation of the chest. Denies chest pain. Heart: Regular rate and rhythm. Skin is warm and dry and intact. DIAGNOSES: 1. Bronchitis. 2. Upper respiratory infection. PLAN: Patient treated with amoxicillin for 10 days, Medrol Dosepak, and albuterol inhaler. She was educated about how to use these medications. Increase oral hydration, rest, finish these medications as prescribed. Tylenol as needed. She needs to follow up with her primary care physician in about 7 to 10 days. Discussed in detail signs and symptoms that she should seek emergency care for. Patient agreeable with the plan and understood. [facility] PATIENT NAME: MELVIN HAYDEN Dr. Elliott MEDICAL REC #: [id number] [place] [address] [facility] RE[facility] PHYSICIAN CORNELIA Taylor/[id number] SSI File#: [id number] END OF DOCUMENT / CHANGE LOG FOLLOWS Last Edited By Patti. Signed By Hoa Aggarwal CNP #Hoa Kebede CNP #TAVIA on 10/21/2021 10:17 ET on 10/21/2021 10:17 ET Revision Number - 2 Verified/Reviewed by 10/21/21 1018 TAVIA [facility] PATIENT NAME: MELVIN HAYDEN [address] [facility] [address] Elliott MEDICAL REC #: [id number] [place] [address] [facility] REPORT [facility] PHYSICIAN documented in this encounter [facility] Consult note Note Date & Type Note Facility Consult note No Information [facility] Phone: Discharge summary Note Date & Type Note Facility Discharge summary No Information [facility] Phone: History and physical note Note Date & Type Note Facility History and physical note No Information [facility] Work Phone: Instructions Note Date & Type Note Facility Instructions Date No Information [facility] Phone: Progress note Note Date & Type Note Facility Progress note No Information [facility] Phone: Reason for referral (narrative) Note Date & Type Note Facility Reason for referral (narrati ve) No Information [facility] Phone: Assessments Diagnosis Hx of total knee arthroplast y, left - Primary Summary Purpose Family History No Family History Records Found Family Member Type Diagnosis Age At Onset No Information Advance Directives No Advanced Directives Records Found Directive Yes / No Effective Date File Name No Information Chief Complaint and Reason for Visit From encounter dated '08/17/2023 10:20'. FOLLOW UP (chief complaint) Additional Source Comments INFORMATION SOURCE (unrecogn ized section and content) DATE CREATED AUTHOR 10/13/2017 [facility] DATE CREATED AUTHOR AUTHOR'S ORGANIZ ATION 12/28/2019 [facility] DATE CREATED AUTHOR AUTHOR'S ORGANIZ ATION 02/18/2020 [facility] DATE CREATED AUTHOR AUTHOR'S ORGANIZ ATION 12/10/2020 [facility] DATE CREATED AUTHOR AUTHOR'S ORGANIZ ATION 03/13/2021 [facility] DATE CREATED AUTHOR AUTHOR'S ORGANIZ ATION 10/21/2021 [facility] DATE CREATED AUTHOR AUTHOR'S ORGANIZ ATION 01/20/2022 [facility] DATE CREATED AUTHOR AUTHOR'S ORGANIZ ATION 10/12/2022 [facility] DATE CREATED AUTHOR AUTHOR'S ORGANIZ ATION 10/07/2023 [facility] DATE CREATED AUTHOR AUTHOR'S ORGANIZ ATION 11/15/2024 [facility] DATE CREATED AUTHOR AUTHOR'S ORGANIZ ATION 12/01/2024 [facility] Source Comments (unrecognize d section and content) In the event this informatio n is protected by the Federal Confidentiality of Alcohol and Drug Abuse Patient Records regulations: The Federal rules restrict any use of the information to criminally investigate or prosecute any alcohol or drug abuse patient.[facility] the event this information is protected by the Federal Confidentiality of Alcohol and Drug Abuse Patient Records regulations: The Federal rules restrict any use of the information to criminally investigate or prosecute any alcohol or drug abuse patient.[facility] FOR RECORDS PERTAINING TO PATIENTS WHO ARE OR HAVE BEEN ENROLLED IN A CHEMICAL DEPENDENCY/SUBSTANCEABUSE PROGRAM, SOME INFORMATION MAY BE OMITTED. This clinical summary was aggregated from multiple sources. Caution should be exercised in using it in the provision of clinical care. This summary normalizes information from multiple sources, and as a consequence, information in this document may materially change the coding, format and clinical context of patient data. In addition, data may be omitted in some cases. CLINICAL DECISIONS SHOULD BE BASED ON THE PRIMARY CLINICAL RECORDS. [facility]. provides no warranty or guarantee of the accuracy or completeness of information in this document.
--- NOTE | 2024-12-29 08:00 | MRI_ITS ---
PROCEDURE: BRAIN W/WO CONTRAST 12/29/2024 REASON FOR EXAM: NEW HEMIFACIAL SPASM RIGHT TECHNIQUE: Procedure Code: [id number] Modality: MR Procedure: BRAIN W/WO CONTRAST Multiplanar and multisequence images were obtained. CONTRAST: Clariscan VOLUME: 14 mL COMPARISON: None FINDINGS: Brain: No hemorrhage or acute ischemia. Mild T2 prolongation in the periventricular white matter and deep white matter of the frontal and parietal lobes. No lesion at the brainstem or cerebellopontine angles. Internal auditory canals are not expanded. Grossly, no lesion is seen. This examination was not optimized for the evaluation of the cerebellopontine angle contents. Diffusion: No restricted diffusion Ventricles: Normal Major Intracranial Vessels: Normal flow voids. Sinuses: Clear Mastoids: Clear MRI/Brain W/WO Contrast IMPRESSION: No acute abnormality. Reading Location: [id number]
== END | disposition home or self-care (01) ==
LOC: OPMRI 07:24
PROVIDERS: Referring Provider Ophthalmology; Visit Provider Ophthalmology
DX: G51.31 Clonic hemifacial spasm, right (principal)
CPT/HCPCS: 70553; A9575